=== PATIENT | male | born 1970 | race Caucasian/White ===

== ENCOUNTER 2016-05-03 09:19 | Emergency (ER) | payer OTHER ==
[~2016-05-03] VITALS: Ht 177.8 cm; Wt 74.5 kg
[~2016-05-03 09:19] MED LIST: LEVO200T6 PO; MECL1TAB42 PO; ONDA4TAB46 PO
[2016-05-03 09:21] VITALS: TEMP 36.9; Ht 177.8 cm; Wt 74.5 kg
[2016-05-03 09:38] VITALS: O2SAT 97
[2016-05-03] MEDS ORDERED: FLUO10CA48 PO (09:42)
[2016-05-03] MEDS ORDERED: RGL10 PO (09:42)
[2016-05-03] MEDS ORDERED: ATOR-22 PO (09:42)
[2016-05-03] MEDS ORDERED: MTHL (09:42)
[2016-05-03] MEDS ORDERED: OMEP10CA2 PO (09:42)
[2016-05-03] MEDS ORDERED: SODIUM CHLORIDE 0.9% 1000ML 1,000 ML IV STA (09:59)
[2016-05-03] MEDS ORDERED: hydrOXYzine HCL 25 MG TAB PO STA (09:59)
--- NOTE | 2016-05-03 10:54 | DIAGNOSTIC IMAGING REPORT ---
CT SCAN OF THE BRAIN WITHOUT IV CONTRAST CLINICAL HISTORY: Seizure. COMPARISON STUDY: CT of the brain dated 03/26/2009. TECHNIQUE: Unenhanced axial CT scan of the brain is performed from the vertex to the skull base. Automated dose control exposure was utilized. FINDINGS: Brain parenchyma: The brain parenchyma is normal in appearance. There is no hemorrhage, mass effect, or evidence of acute territorial ischemia by CT criteria. Sorenson-white matter is preserved. No extra-axial fluid collection is seen. Ventricles, sulci, cisterns: Normal in configuration. Intracranial vasculature: The visualized intracranial vasculature at the skull base is normal in appearance. Calvarium: There is no depressed calvarial fracture. Sinuses and mastoids: There is moderate mucosal thickening in the ethmoid sinuses. Mild mucosal thickening is seen in the right frontal sinus. The mastoid air cells are well pneumatized. Orbits: The bony orbits are grossly intact. IMPRESSION: No acute intracranial abnormality. Electronically signed by: Ventura Marvin M.D. 05/03/2016 10:52 AM Dictated Date/Time: 05/03/2016 10:48 AM
[2016-05-03 11:03] LABS: PARTIAL THROMBOPLASTIN RATIO 1.1; PROTHROMBIN TIME (PATIENT) 10.7 SECONDS (9.0-12.0)
--- NOTE | 2016-05-03 11:08 | DIAGNOSTIC IMAGING REPORT ---
MAXILLOFACIAL CT CT DOSE: 838.16 mGy.cm HISTORY: Seizures. TECHNIQUE: Multiaxial CT images of the maxillofacial region were performed and reformatted in the coronal plane without the use of contrast. COMPARISON: None. FINDINGS: The visualized cervical spine, skull base, pterygoid plates, lamina papyracea, orbital floors, mandible, and zygomatic arches are intact. No acute fractures. The orbits are unremarkable. Slight deformity of the nasal bones likely represent old, healed fractures. There is right nasal septal deviation. IMPRESSION: No acute fractures within the maxillofacial region. Electronically signed by: J Carlos Oconnell M.D. 05/03/2016 11:06 AM Dictated Date/Time: 05/03/2016 10:51 AM
[2016-05-03 11:10] LABS: BLOOD UREA NITROGEN 12 mg/dl (7-18); BUN/CREATININE RATIO 12.5 (10-20); CALCIUM 9.4 mg/dl (8.5-10.1); CARBON DIOXIDE 31 mmol/L (21-32); CHLORIDE 101 mmol/L (98-107); GLUCOSE 90 mg/dl (70-99); POTASSIUM 3.9 mmol/L (3.5-5.1); SODIUM 139 mmol/L (136-145)
[2016-05-03 11:15] LABS: ACETAMINOPHEN < 2 ug/ml (10-30)
[2016-05-03 11:21] LABS: ALKALINE PHOSPHATASE 99 U/L (45-117); ALT/SGPT 52 U/L (12-78); AST/SGOT 37 U/L (15-37); THYROID STIMULATING HORMONE 0.226 uIu/ml (0.300-4.500)
[2016-05-03 11:22] LABS: BASO % 0.1 %; BASO ABS # 0.01 K/uL (0-0.2); COMPLETE YES; EOS % 0.1 %; HEMATOCRIT 45.5 % (42-52); IG% 0.3 %; LYMPH % 11.2 %; LYMPH ABS # 1.05 K/uL (1.2-3.4); MEAN CELL VOLUME 83.9 fL (80-100); MEAN CORPUSCULAR HEMOGLOBIN 28.8 pg (25-34); MEAN CORPUSCULAR HGB CONC 34.3 g/dl (32-36); MEAN PLATELET VOLUME 9.6 fL (7.4-10.4); MONO % 6.1 %; NEUT % 82.2 %; PLATELET COUNT 271 K/uL (130-400); RED BLOOD COUNT 5.42 M/uL (4.7-6.1); WHITE BLOOD COUNT 9.35 K/uL (4.8-10.8)
[2016-05-03 12:55] LABS: BENZODIAZEPINE, URINE NEG (NEG); COCAINE,URINE NEG (NEG); PHENCYCLIDINE, URINE NEG (NEG)
[2016-05-03] MEDS ORDERED: HYDR50CA2 PO (13:22)
--- NOTE | 2016-05-03 16:35 | EMERGENCY ROOM VISIT NOTE ---
History Report prepared by Arcelia: Matt Middleton Under the Supervision of: Dr. Ariel Hurley M.D. First contact with patient: 09:44 Chief Complaint: SEIZURE Stated Complaint: SEIZURES Nursing Triage Summary: Pt states, "I've been on methadone maintenance for years. They started tapering me down. Out of the blue the dose isn't in me any more. I get hot flashes and pass out and woke up convulsing on the bathroom floor. They gave me a dose this morning, but it's like it's not in me. Something is taking it out of me." Pt reports feeling anxious. Pt reports multiple episodes. States, "The one I busted my face on last night was at 6pm. I've had mini ones since then." History of Present Illness The patient is a 46 year old male who presents to the Emergency Room with complaints of a resolved convulsive episode that occurred yesterday at 1730. The patient has been experiencing intermittent hot flashes for four days. Yesterday he was having a hot flash and started experiencing dizziness. He got extremely nauseous and dizzy. He lost consciousness briefly and fell hitting his face on the toilet. When he came to he states he was shaking all over for several seconds. He states he was awake while he was shaking and couldn't control himself. The patient has been on a Methadone maintenance program for several years. He has been on a blind taper for six months now. The patient usually takes one dose every morning. The patient feels like he has been withdrawing. He hasn't felt right for 4-5 days now. He had his Methadone dose increased when he saw his doctor yesterday but he still states that he does not feel like he is getting enough methadone. He feels like the methadone is leaving his body at about 5 PM daily and he developed these withdrawal symptoms. He was referred to the ED by the [facility] this morning where he was given his daily dose. Even now he states that he feels like the methadone is leaving his body. The patient has a history of panic attacks. He feels short of breath when he is panicking, and starts to feel numbness/ tingling in his fingers. The patient denies chest pain. He has had no recorded fevers. The patient does have a history of abdominal issues for which he sees his regular doctor. He believes that he has celiac disease and has been taken off gluten. Source of History: patient Onset: 1730 yesterday Position: other (global) Quality: other (syncopal episode) Timing: resolved Associated Symptoms: + SOB, + numbness (tingling to his fingers and toes), No chest pain, No fevers Note: Patient was also positive for hot flashes and dizziness. Review of Systems See HPI for pertinent positives & negatives. A total of 10 systems reviewed and were otherwise negative. Past Medical & Surgical Medical Problems: (1) Celiac disease (2) Methadone use Family History Patient reports no known family medical history. Social History Smoking Status: Current Every Day Smoker Alcohol Use: none Occupation Status: employed Current/Historical Medications Scheduled Atorvastatin (Lipitor), 20 MG PO DAILY Fluoxetine (Prozac), 10 MG PO DAILY Levothyroxine Sodium (Levothyroxine Sodium), 200 MCG PO DAILY Methadone HCl (Methadone HCl), Unknown Dose DAILY Metoclopramide HCl (Metoclopramide HCl), 10 MG PO HS Omeprazole (Prilosec), Unknown Dose PO DAILY Scheduled PRN Hydroxyzine Pamoate (Vistaril), 50 MG PO Q6H PRN for withdrawal Allergies Coded Allergies: No Known Allergies (Verified , 05/03/16) Physical Exam Vital Signs Date Time Temp Pulse Resp B/P Pulse Ox O2 Delivery O2 Flow Rate FiO2 05/03/16 14:27 73 17 133/75 96 Room Air 05/03/16 12:53 67 05/03/16 12:31 86 13 123/82 99 Room Air 05/03/16 10:24 68 20 146/83 98 Room Air 05/03/16 09:38 82 20 144/95 97 Room Air 05/03/16 09:38 97 Room Air 05/03/16 09:34 96 05/03/16 09:21 36.9 105 22 196/110 94 Room Air Physical Exam Constitutional: Vital signs reviewed. Eyes: Pupils are equal round reactive to light. Conjunctiva are noninjected. ENT: Pharynx is clear without erythema or exudate. Mucous membranes are moist. Abrasion and tenderness to the left mid face. No tongue lacerations. Neck supple without meningeal signs. No midline tenderness to the cervical spine. Respiratory: Clear to auscultation bilaterally. Breath sounds are equal bilaterally. Cardiovascular: Regular rate and rhythm. No rubs or gallops. GI: Soft, nondistended and nontender. Bowel sounds are present. Musculoskeletal: No peripheral edema. No lower extremity tenderness. Integumentary: No cyanosis. Neurologic: The patient is awake and alert. Cranial nerves II-XII are intact. Motor is 5 out of 5 all extremities. Sensation is intact to light touch all extremities. Normal speech. No pronator drift. No dysdiadochokinesis. No limb ataxia. Psychiatric: Very anxious. Medical Decision & Procedures ER Provider Diagnostic Interpretation: CT results as stated below per my review and radiologist interpretation. MAXILLOFACIAL CT CT DOSE: 838.16 mGy.cm HISTORY: Seizures. TECHNIQUE: Multiaxial CT images of the maxillofacial region were performed and reformatted in the coronal plane without the use of contrast. COMPARISON: None. FINDINGS: The visualized cervical spine, skull base, pterygoid plates, lamina papyracea, orbital floors, mandible, and zygomatic arches are intact. No acute fractures. The orbits are unremarkable. Slight deformity of the nasal bones likely represent old, healed fractures. There is right nasal septal deviation. IMPRESSION: No acute fractures within the maxillofacial region. Electronically signed by: J Carlos Oconnell M.D. 05/03/2016 11:06 AM Dictated Date/Time: 05/03/2016 10:[address] SCAN OF THE BRAIN WITHOUT IV CONTRAST CLINICAL HISTORY: Seizure. COMPARISON STUDY: CT of the brain dated 03/26/2009. TECHNIQUE: Unenhanced axial CT scan of the brain is performed from the vertex to the skull base. Automated dose control exposure was utilized. FINDINGS: Brain parenchyma: The brain parenchyma is normal in appearance. There is no hemorrhage, mass effect, or evidence of acute territorial ischemia by CT criteria. Sorenson-white matter is preserved. No extra-axial fluid collection is seen. Ventricles, sulci, cisterns: Normal in configuration. Intracranial vasculature: The visualized intracranial vasculature at the skull base is normal in appearance. Calvarium: There is no depressed calvarial fracture. Sinuses and mastoids: There is moderate mucosal thickening in the ethmoid sinuses. Mild mucosal thickening is seen in the right frontal sinus. The mastoid air cells are well pneumatized. Orbits: The bony orbits are grossly intact. IMPRESSION: No acute intracranial abnormality. Electronically signed by: Ventura Marvin M.D. 05/03/2016 10:52 AM Dictated Date/Time: 05/03/2016 10:48 AM Laboratory Results 05/03/16 10:20 Red Blood Count 5.42, Mean Corpuscular Volume 83.9, Mean Corpuscular Hemoglobin 28.8, Mean Corpuscular Hemoglobin Concent 34.3, Mean Platelet Volume 9.6, Neutrophils (%) (Auto) 82.2, Lymphocytes (%) (Auto) 11.2, Monocytes (%) (Auto) 6.1, Eosinophils (%) (Auto) 0.1, Basophils (%) (Auto) 0.1, Neutrophils # (Auto) 7.68, Lymphocytes # (Auto) 1.05, Monocytes # (Auto) 0.57, Eosinophils # (Auto) 0.01, Basophils # (Auto) 0.01 05/03/16 10:20 Test 05/03/16 10:20 05/03/16 11:40 White Blood Count 9.35 K/uL (4.8-10.8) Red Blood Count 5.42 M/uL (4.7-6.1) Hemoglobin 15.6 g/dL (14.0-18.0) Hematocrit 45.5 % (42-52) Mean Corpuscular Volume 83.9 fL (80-100) Mean Corpuscular Hemoglobin 28.8 pg (25-34) Mean Corpuscular Hemoglobin Concent 34.3 g/dl (32-36) Platelet Count 271 K/uL (130-400) Mean Platelet Volume 9.6 fL (7.4-10.4) Neutrophils (%) (Auto) 82.2 % Lymphocytes (%) (Auto) 11.2 % Monocytes (%) (Auto) 6.1 % Eosinophils (%) (Auto) 0.1 % Basophils (%) (Auto) 0.1 % Neutrophils # (Auto) 7.68 K/uL (1.4-6.5) Lymphocytes # (Auto) 1.05 K/uL (1.2-3.4) Monocytes # (Auto) 0.57 K/uL (0.11-0.59) Eosinophils # (Auto) 0.01 K/uL (0-0.5) Basophils # (Auto) 0.01 K/uL (0-0.2) RDW Standard Deviation 45.8 fL (36.4-46.3) RDW Coefficient of Variation 14.9 % (11.5-14.5) Immature Granulocyte % (Auto) 0.3 % Immature Granulocyte # (Auto) 0.03 K/uL (0.00-0.02) Prothrombin Time 10.7 SECONDS (9.0-12.0) Prothromb Time International Ratio 1.0 (0.9-1.1) Activated Partial Thromboplast Time 27.5 SECONDS (21.0-31.0) Partial Thromboplastin Ratio 1.1 Anion Gap 7.0 mmol/L (3-11) Est Creatinine Clear Calc Drug Dose 95.3 ml/min Estimated GFR () 104.1 Estimated GFR (Non- 89.9 BUN/Creatinine Ratio 12.5 (10-20) Calcium Level 9.4 mg/dl (8.5-10.1) Total Bilirubin 0.4 mg/dl (0.2-1) Direct Bilirubin 0.1 mg/dl (0-0.2) Aspartate Amino Transf (AST/SGOT) 37 U/L (15-37) Alanine Aminotransferase (ALT/SGPT) 52 U/L (12-78) Alkaline Phosphatase 99 U/L (45-117) Troponin I < 0.015 ng/ml (0-0.045) Total Protein 8.9 gm/dl (6.4-8.2) Albumin 4.9 gm/dl (3.4-5.0) Thyroid Stimulating Hormone (TSH) 0.226 uIu/ml (0.300-4.500) Free Thyroxine 1.86 ng/dl (0.80-1.60) Salicylates Level 4.5 mg/dl (2.8-20) Acetaminophen Level < 2 ug/ml (10-30) Ethyl Alcohol mg/dL < 3.0 mg/dl (0-3) Urine Opiates Screen NEG (NEG) Urine Methadone, Qualitative POS (NEG) Urine Barbiturates NEG (NEG) Urine Phencyclidine (PCP) Level NEG (NEG) Ur Amphetamine/Methamphetamine NEG (NEG) MDMA (Ecstasy) Screen NEG (NEG) Urine Benzodiazepines Screen NEG (NEG) Urine Cocaine Metabolite NEG (NEG) Urine Marijuana (THC) POS (NEG) Laboratory results as reviewed by me. Medications Administered Medications (Trade) Dose Ordered Sig/Mario Alberto Route Start Time Stop Time Status Last Admin Dose Admin Sodium Chloride (Nss 1000ml) 1,000 ml @ 999 mls/hr Q1H1M STAT IV 05/03/16 09:59 05/03/16 10:59 DC 05/03/16 10:23 999 MLS/HR Hydroxyzine HCl (Vistaril Tab) 50 mg NOW STAT PO 05/03/16 09:59 05/03/16 10:03 DC 05/03/16 10:22 50 MG ECG Indication: syncope Rate (beats per minute): 71 Rhythm: normal sinus Findings: no acute ischemic change, no ectopy ED Course 0946: The patient was evaluated in room B11b. A complete history and physical exam was performed. 0959: Vistaril 50 mg PO, NSS 1000 ml @ 999 mls/hr. 1106: Went to check on the patient. He is on the phone with a nurse at the methadone clinic talking about his withdrawal symptoms. He is not feeling bad right now but is concerned about later in the day. 1140: The patient requested to speak with a case technician about inpatient rehab for his methadone withdrawal. 1230: Talked with the patient. He is feeling better and much less anxious now that he received Vistaril. I discussed his thyroid test with him. He will follow up with his PCP. The patient is still waiting to speak with case management. 1558: The case technician will continue trying to get the patient into rehab. He can be discharged at this time. 1600: He was discharged home. Medical Decision This is a 46-year-old male who presents with dizziness and a syncopal episode. Differential diagnosis includes vasovagal syncope, opiate withdrawal, anxiety, panic attack, metabolic derangement. I did perform a limited focused review of portions of the patient's old chart on the electronic medical record. The patient has had no recent pertinent visits to this hospital. I did evaluate the patient as noted above. The patient has been having withdrawal symptoms for the past 4-5 days. He has been on methadone and they have been doing a blind taper of his dosing. He states that he feels like the methadone leaves his body by around 5 PM and he develops withdrawal symptoms because of this. Last night he had a syncopal episode after feeling extremely nauseous and dizzy. His symptoms sound like he had a vasovagal syncopal episodes due to withdrawal symptoms. He describes shaking but stated it was only very brief and while he was awake. This seems unlikely to have been a seizure. He has no reported history of seizure in the past. He is also extremely anxious. IV access was established. The patient was placed on a continuous inspector canvas products. I did treat him with Vistaril 50 mg orally. He was also given a liter of normal saline IV. I did order and personally review the patient's 12-lead EKG as described above. I did order and review the patient's blood work as noted in the electronic medical record. His TSH is slightly low and his T3 is slightly high. I did order a CT of the head and facial bones. I did review the images myself as well as the radiology report as described above. There is no evidence of intracranial hemorrhage or facial fracture. I did reassess the patient. He is much less anxious at this time. He states he feels better because of the Vistaril. I did discuss his test results with him and recommended he follow closely with his doctor regarding his hyperthyroidism. He requested to talk to someone about entering inpatient rehabilitation. I did have the entire health gig tender evaluate him and make recommendations. I did reassess him again and he continues to feel well at this time although is anxious about how he will feel later tonight. Although his syncope appears to have been vasovagal, the patient was advised to avoid any activity that may put himself or others at risk should he have another syncopal episode until cleared by his physician. He was given a prescription for Vistaril and discharged in good condition. Impression Primary Impression: Syncope Additional Impressions: Contusion of face Opiate withdrawal Hyperthyroidism Anxiety Scribe Attestation The scribe's documentation has been prepared under my direct and personally reviewed by me in its entirety. I confirm that the note above accurately reflects all work, treatment, procedures, and medical decision making performed by me. Departure Information Dispostion Home / Self-Care Prescriptions Hydroxyzine Pamoate (VISTARIL) 50 Mg Cap 50 MG PO Q6H Y for withdrawal, #14 CAP PRN ITCH Prov: Ariel Hurley M.D. 05/03/16 Referrals Sumeet Cornell PA-C (PCP) Forms HOME CARE DOCUMENTATION FORM, IMPORTANT VISIT INFORMATION Patient Instructions A Signature Page, ED Withdrawal Narcotic, My [facility], Syncope Additional Instructions You have been examined and treated today on an emergency basis only. This is not a substitute for, or an effort to provide, complete comprehensive medical care. It is impossible to recognize and treat all injuries or illnesses in a single emergency department visit. It is therefore important that you follow up closely with your physician. Call as soon as possible for an appointment. Return for worsening symptoms or if you develop fever, vomiting, chest pain or any other concerning symptoms. Do not engage in any activity that may put yourself or others at risk should you pass out again. This includes, but is not limited to, driving, taking a bath, climbing heights, swimming or operating heavy machinery. Problem Qualifiers Primary Impression: Syncope Syncope type: unspecified Qualified Codes: R55 - Syncope and collapse Additional Impressions: Contusion of face Encounter type: initial encounter Qualified Codes: S00.83XA - Contusion of other part of head, initial encounter
[2016-05-03 16:38] VITALS: BP 143/89; PULSE 79; O2SAT 98
[2016-05-05 13:12] LABS: METHADONE METABOLITE >40000 NG/ML (CUTOFF=100); METHADONE VERIFIC 8540 NG/ML (CUTOFF=100)
[2016-12-02] MEDS ORDERED: AZEL0.15 NAE (09:51)
[2016-12-02] MEDS ORDERED: LEVO150T PO (09:51)
[2016-12-02] MEDS ORDERED: PANT40TA PO (09:51)
[2016-12-02] MEDS ORDERED: HYDR10SY2 PO (09:51)
[2016-12-02] MEDS ORDERED: RANI1TAB75 PO (09:51)
[2016-12-02] MEDS ORDERED: ONDA8TAB6 PO (09:51)
[2016-12-02] MEDS ORDERED: FLUO20CA20 PO (09:51)
== END 2016-05-03 16:40 | disposition home or self-care (01) ==
LOC: C.EDB 09:21
DX: R55 Syncope and collapse (principal); S00.83XA Contusion of other part of head, initial encounter; W19.XXXA Unspecified fall, initial encounter; F11.23 Opioid dependence with withdrawal; E05.90 Thyrotoxicosis, unspecified without thyrotoxic crisis or storm; F41.9 Anxiety disorder, unspecified; K90.0 Celiac disease; F17.200 Nicotine dependence, unspecified, uncomplicated; Z79.899 Other long term (current) drug therapy

== ENCOUNTER → 2016-12-09 | Day surgery (SDC) | payer OTHER ==
[2016-12-02 09:53] VITALS: BMI 26.0
[~2016-12-09] VITALS: Ht 177.8 cm; Wt 81.8 kg
[~2016-12-09] MED LIST changes: +ATOR-22 PO; +AZEL0.15 NAE; +BENZOCAIN/TETRACA/BUTAM SPRAY 200 APPLN/20 GM SPRY ONE; +FLUO20CA20 PO; +HYDR10SY2 PO; +LEVO150T PO; -LEVO200T6 PO; +LIDOCAINE HCL 2% 2 ML VIAL (20MG/ML) ONE; -MECL1TAB42 PO; +MIDAZOLAM HCL 1 MG/ML 2ML VIAL ONE; +MTHL; -ONDA4TAB46 PO; +ONDA8TAB6 PO; +PANT40TA PO; +PROPOFOL IV EMULSION 10 MG/ML 20 ML VIAL IV ONE; +RANI1TAB75 PO; +SODIUM CHLORIDE 0.9% 500ML 500 ML IV ONE
[2016-12-09 09:29] VITALS: Ht 177.8 cm; Wt 81.8 kg
[2016-12-09 09:47] LABS: HEMATOCRIT 41.2 % (42-52); MEAN CELL VOLUME 84.9 fL (80-100); MEAN CORPUSCULAR HEMOGLOBIN 27.4 pg (25-34); MEAN CORPUSCULAR HGB CONC 32.3 g/dl (32-36); MEAN PLATELET VOLUME 9.3 fL (7.4-10.4); PLATELET COUNT 252 K/uL (130-400); RED BLOOD COUNT 4.85 M/uL (4.7-6.1); WHITE BLOOD COUNT 6.98 K/uL (4.8-10.8)
[2016-12-09 10:15] LABS: BUN/CREATININE RATIO 13.2 (10-20); CALCIUM 8.5 mg/dl (8.5-10.1); CREATININE 0.91 mg/dl (0.60-1.40); POTASSIUM 4.1 mmol/L (3.5-5.1)
[2016-12-09 10:23] LABS: THYROID STIMULATING HORMONE 1.92 uIu/ml (0.300-4.500)
[2016-12-09 10:26] LABS: T3 TOTAL 0.92 ng/ml (0.60-1.81); THYROXINE (T4) 10.4 mcg/dl (4.5-10.9)
--- NOTE | 2016-12-09 10:27 | Endo History and Physical ---
History & Physical Date of Service: Dec 09, 2016. Chief Complaint: ABDOMINAL PAIN GERD NAUSEA VOMITING Referring Physician: LYN SETHI History of Present Illness 46 yo CM who presents for EGD secondary to abdominal pain, GERD, nausea and vomiting. 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) Hx Alcohol Use: No Allergies Coded Allergies: No Known Allergies (Verified , 12/09/16) Current Medications Reported Home Medications Medications Dose Route/Sig Max Daily Dose Days Date Category Dose Instructions Zofran (Ondansetron HCl) 8 Mg Tab 8 Mg PO Q6-8H PRN 12/02/16 Reported Hydroxyzine Hcl 10 Mg/5 Ml Syp 10 Ml PO BID 12/02/16 Reported Astepro (Azelastine Hcl) 0.15 % Spr 2 Ider SAIDA DAILY 12/02/16 Reported Ranitidine 75 (Ranitidine HCl) 75 Mg Tab 1 Tab PO BID 12/02/16 Reported Protonix (Pantoprazole Sodium) 40 Mg Tab 40 Mg PO QAM 12/02/16 Reported Fluoxetine (Fluoxetine Hcl (Pmdd)) 20 Mg Cap 1 Cap PO AFTERNOON 12/02/16 Reported Synthroid (Levothyroxine Sodium) 150 Mcg Tab 150 Mcg PO QAM 12/02/16 Reported Lipitor (Atorvastatin Calcium) 20 Mg Tab 20 Mg PO AFTERNOON 05/03/16 Reported Methadone HCl 1 Mg/1 Ml Soln Unknown Dose DAILY 05/03/16 Reported "BLIND TAPER" Vital Signs Weight (Kilograms): 81.82 Height (Feet): 5 Height (Inches): 10 Date Time Temp Pulse Resp B/P (MAP) Pulse Ox O2 Delivery O2 Flow Rate FiO2 12/09/16 09:39 37.1 58 20 116/70 (85) 97 Room Air Physical Exam General Appearance: WD/WN, no apparent distress Respiratory/Chest: Auscultation: breath sounds normal Cardiovascular: Heart Auscultation: RRR Abdomen: Bowel Sounds: normal Inspection & Palpation: soft, non-distended, no tenderness, guarding & rebound Assessment and Plan Assessment: 46 yo CM who presents for EGD secondary to abdominal pain, GERD, nausea and vomiting. Plan: Proceed with EGD
--- NOTE | 2016-12-09 11:42 | GI REPORT ---
Procedure Date: 12/09/2016 11:07 AM Procedure: Upper GI endoscopy Indications: Epigastric abdominal pain, Suspected gastro-esophageal reflux disease, Nausea with vomiting Medicines: Monitored Anesthesia Care Complications: No immediate complications. Estimated Blood Loss: Estimated blood loss: none. Procedure: Pre-Anesthesia Assessment: - Prior to the procedure, a History and Physical was performed, and patient medications and allergies were reviewed. The patient's tolerance of previous anesthesia was also reviewed. The risks and benefits of the procedure and the sedation options and risks were discussed with the patient. All questions were answered, and informed consent was obtained. Prior Anticoagulants: The patient has taken no previous anticoagulant or antiplatelet agents. ASA Grade Assessment: II - A patient with mild systemic disease. After reviewing the risks and benefits, the patient was deemed in satisfactory condition to undergo the procedure. After obtaining informed consent, the endoscope was passed under direct vision. Throughout the procedure, the patient's blood pressure, pulse, and oxygen saturations were monitored continuously. The scope was introduced through the mouth, and advanced to the second part of duodenum. The upper GI endoscopy was accomplished without difficulty. The patient tolerated the procedure well. Findings: The esophagus was normal. A medium amount of food (residue) was found in the entire examined stomach. Localized mild inflammation characterized by erythema was found in the gastric antrum. Biopsies were taken with a cold forceps for histology. The examined duodenum was normal. Impression: - Normal esophagus. - A medium amount of food (residue) in the stomach. - Gastritis. Biopsied. - Normal examined duodenum. Recommendation: - Resume previous diet. - Continue present medications. - Return to primary care physician as previously scheduled. - Do a gastric emptying study at appointment to be scheduled. - Await pathology results. Dustin Orr DO 12/09/2016 11:42:27 AM This report has been signed electronically. Note Initiated On: 12/09/2016 11:07 AM I attest to the content of the Intraoperative Record and orders documented therein, exceptions below
--- NOTE | 2016-12-09 12:02 | Anesthesiology Progress Note ---
Anesthesia Post Op Note Date & Time Dec 09, 2016 at 12:01 Vital Signs Pain Intensity: 0 Vital Signs Past 12 Hours Date Time Temp Pulse Resp B/P (MAP) Pulse Ox O2 Delivery O2 Flow Rate FiO2 12/09/16 11:50 53 16 104/65 (78) 97 Room Air 12/09/16 11:35 57 16 109/68 (82) 97 Room Air 12/09/16 09:39 37.1 58 20 116/70 (85) 97 Room Air Notes Mental Status: alert / awake / arousable, participated in evaluation Pt Amnestic to Procedure: Yes Nausea / Vomiting: adequately controlled Pain: adequately controlled Airway Patency, RR, SpO2: stable & adequate BP & HR: stable & adequate Hydration State: stable & adequate Anesthetic Complications: no major complications apparent
[2016-12-09 12:06] VITALS: BP 125/81; PULSE 51; O2SAT 97
[2016-12-09 12:25] LABS: ESTIMATED AVERAGE GLUCOSE 117 mg/dl; HA1C FLAG Normal (Normal)
--- NOTE | 2016-12-09 12:27 | Discharge Instructions ---
Endoscopy Patient Instructions Date / Procedure(s) Performed Dec 09, 2016. EGD Allergy Information Coded Allergies: No Known Allergies (Verified , 12/09/16) Discharge Date / Findings Dec 09, 2016. Gastritis s/p biopsies Retained gastric contents Medication Instructions OK to resume all medications today as prescribed Reported Home Medications Medications Dose Route/Sig Max Daily Dose Days Date Category Dose Instructions Zofran (Ondansetron HCl) 8 Mg Tab 8 Mg PO Q6-8H PRN 12/02/16 Reported Hydroxyzine Hcl 10 Mg/5 Ml Syp 10 Ml PO BID 12/02/16 Reported Astepro (Azelastine Hcl) 0.15 % Spr 2 [place] SAIDA DAILY 12/02/16 Reported Ranitidine 75 (Ranitidine HCl) 75 Mg Tab 1 Tab PO BID 12/02/16 Reported Protonix (Pantoprazole Sodium) 40 Mg Tab 40 Mg PO QAM 12/02/16 Reported Fluoxetine (Fluoxetine Hcl (Pmdd)) 20 Mg Cap 1 Cap PO AFTERNOON 12/02/16 Reported Synthroid (Levothyroxine Sodium) 150 Mcg Tab 150 Mcg PO QAM 12/02/16 Reported Lipitor (Atorvastatin Calcium) 20 Mg Tab 20 Mg PO AFTERNOON 05/03/16 Reported Methadone HCl 1 Mg/1 Ml Soln Unknown Dose DAILY 05/03/16 Reported "BLIND TAPER" Provider Instructions Activity Restrictions - No exercising or heavy lifting for 24 hours. - Do not drink alcohol the day of the procedure. - Do not drive a car or operate machinery until the day after the procedure. - Do not make any important decisions or sign important papers in 24 hours after the procedure. Following Day: - Return to full activity which may include returning to work/school. Diet Start your diet with liquids and light foods (jello, soup, juice, toast). Then eat your usual diet if not nauseated. Treatment For Common After Affects For mild abdominal pain, bloating, or excessive gas: - Rest - Eat lightly - Lie on right side Follow-Up Information Follow-up with LYN SETHI as scheduled Anesthesia Information What You Should Know You have had a procedure that required some medicine to reduce anxiety and discomfort. This treatment is called moderate sedation. After receiving the treatment, you may be sleepy, but you will be able to breathe on your own. The effects of the treatment may last for several hours. Follow these instructions along with Activity/Diet recommendations noted above: * Do NOT do anything where dizziness or clumsiness would be dangerous. * Rest quietly at home today, then you can be up and about tomorrow. * Have a responsible person stay with you the rest of today. * You may have had an I.V. today. If so, you may take the dressing off later today. Recommendations Call your doctor if: * Trouble breathing * Continuous vomiting for more than 24 hours * Temperature above 101 degrees * Severe abdominal pain or bloating * Pain not relieved by pain medicine ordered * There is increased drainage or redness from any incision * A large amount of rectal bleeding greater than 2-3 tablespoons. (If you had a polyp/s removed or have hemorrhoids, a small amount of blood - from the rectum is to be expected.) * You have any unanswered questions or concerns. IN THE EVENT OF A SERIOUS EMERGENCY, GO TO THE NEAREST EMERGENCY ROOM Your discharge instructions were prepared by provider Dustin Orr. Patient Instructions Signature Page Robby Blandon Patient (or Guardian) Signature/Date: I have read and understand the instructions given to me by my caregivers. Caregiver/RN/Doctor Signature/Date: The above-named patient and/or guardian has received patient instructions on this date. + Original Patient Signature Page (only) stays with chart. Please make copy for patient.
[2016-12-12 05:31] LABS: IGA SERUM 208 mg/dL (81-463); TIS TRANS IGA 1 U/mL (<4)
== END | disposition home or self-care (01) ==
LOC: C.GI 08:50
PROVIDERS: ATTEND Internal Medicine
DX: R10.13 Epigastric pain (principal); K31.84 Gastroparesis; K29.50 Unspecified chronic gastritis without bleeding; R11.2 Nausea with vomiting, unspecified; K21.9 Gastro-esophageal reflux disease without esophagitis; F17.200 Nicotine dependence, unspecified, uncomplicated; R14.0 Abdominal distension (gaseous); E03.8 Other specified hypothyroidism; E78.5 Hyperlipidemia, unspecified

== ENCOUNTER → 2016-12-21 | Outpatient (CLI) | payer OTHER ==
[~2016-12-21] MED LIST changes: -BENZOCAIN/TETRACA/BUTAM SPRAY 200 APPLN/20 GM SPRY ONE; -LIDOCAINE HCL 2% 2 ML VIAL (20MG/ML) ONE; -MIDAZOLAM HCL 1 MG/ML 2ML VIAL ONE; -PROPOFOL IV EMULSION 10 MG/ML 20 ML VIAL IV ONE; -SODIUM CHLORIDE 0.9% 500ML 500 ML IV ONE
--- NOTE | 2016-12-21 07:54 | DIAGNOSTIC IMAGING REPORT ---
BILIARY ABDOMEN LIMITED HISTORY: 46 years-old Male R11.2 Nausea and vomiting in [id number] Abdominal [id number] COMPARISON: None available TECHNIQUE: Multiple real-time sonographic images of the abdominal right upper quadrant were obtained assessing grayscale appearance and color flow FINDINGS: The liver is mildly echogenic and heterogeneous. Pancreas is obscured by bowel gas. Gallbladder demonstrates no wall thickening, shadowing cholelithiasis or pericholecystic fluid collections. A positive sonographic Soto's sign was not reported. Common bile duct measures 0.6 cm. Imaged right kidney is unremarkable. IMPRESSION: 1. No evidence of cholelithiasis, sonographic evidence of acute cholecystitis or biliary ductal dilation. 2. Mildly echogenic heterogeneous appearance of the liver may reflect mild fatty infiltration. The above report was generated using voice recognition software. It may contain grammatical, syntax or spelling errors. Electronically signed by: Leonardo Umana M.D. 12/21/2016 7:53 AM Dictated Date/Time: 12/21/2016 7:51 AM
--- NOTE | 2016-12-21 13:27 | DIAGNOSTIC IMAGING REPORT ---
NUCLEAR GASTRIC EMPTYING STUDY HISTORY: Gastroparesis. Generalized abdominal pain. Reflux disease. COMPARISON: Abdominal ultrasound 12/21/2016. TECHNIQUE: Following the oral administration of 1.1 mCi of technetium 99m sulfur colloid in egg sandwich and 8 ounces of water, static abdominal images are obtained anteriorly and posteriorly at 0 minutes, 1 hour, 2 hour, and 4 hour time intervals. Gastric emptying was calculated utilizing the geometric mean method. FINDINGS: There is approximately 68% activity remaining at the 1 hour time interval (normal is less than 90%), 49% remaining at the 2 hour time interval (normal is less than 60%), and 4% activity remaining at the 4 hour time interval (normal is less than 10%). IMPRESSION: No evidence for delayed gastric emptying. Electronically signed by: J Carlos Oconnell M.D. 12/21/2016 1:25 PM Dictated Date/Time: 12/21/2016 1:25 PM
== END | disposition home or self-care (01) ==
LOC: C.ULTR 07:20
PROVIDERS: ATTEND Registered Nurse
DX: R11.2 Nausea with vomiting, unspecified (principal); R14.0 Abdominal distension (gaseous); K21.9 Gastro-esophageal reflux disease without esophagitis; K31.84 Gastroparesis

== ENCOUNTER → 2017-02-09 | Day surgery (SDC) | payer OTHER ==
[2017-02-06 11:04] VITALS: Ht 176.5 cm; Wt 81.8 kg
[~2017-02-09] VITALS: Ht 176.5 cm; Wt 81.8 kg
[~2017-02-09] MED LIST changes: +LIDOCAINE HCL 2% 2 ML VIAL (20MG/ML) ONE; +MIDAZOLAM HCL 1 MG/ML 2ML VIAL ONE; +ONDANSETRON INJ 2 MG/ML 2 ML VIAL ONE; +PROPOFOL IV EMULSION 10 MG/ML 20 ML VIAL IV ONE; +SODIUM CHLORIDE 0.9% 500ML 500 ML IV ONE; +SUCR1TAB29 PO
--- NOTE | 2017-02-09 15:32 | Endo History and Physical ---
History & Physical Date of Service: Feb 09, 2017. Chief Complaint: change in bowel habits Referring Physician: Sumeet Cornell PAC History of Present Illness 46 yo CM who presents for colonoscopy secondary to change in bowel habits. 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) Hx Alcohol Use: No Allergies Coded Allergies: No Known Allergies (Verified , 02/06/17) Current Medications Reported Home Medications Medications Dose Route/Sig Max Daily Dose Days Date Category Dose Instructions Carafate (Sucralfate) 1 Gm Tab 1 Gm PO QID 02/06/17 Reported Zofran (Ondansetron HCl) 8 Mg Tab 8 Mg PO Q6-8H PRN 12/02/16 Reported Hydroxyzine Hcl 10 Mg/5 Ml Syp 10 Ml PO BID 12/02/16 Reported Astepro (Azelastine Hcl) 0.15 % Spr 2 [place] SAIDA DAILY 12/02/16 Reported Fluoxetine (Fluoxetine Hcl (Pmdd)) 20 Mg Cap 1 Cap PO AFTERNOON 12/02/16 Reported Synthroid (Levothyroxine Sodium) 150 Mcg Tab 150 Mcg PO QAM 12/02/16 Reported Lipitor (Atorvastatin Calcium) 20 Mg Tab 20 Mg PO AFTERNOON 05/03/16 Reported Methadone HCl 1 Mg/1 Ml Soln Unknown Dose DAILY 05/03/16 Reported "BLIND TAPER" Vital Signs Weight (Kilograms): 81.82 Height (Feet): 5 Height (Inches): 9.5 Date Time Temp Pulse Resp B/P (MAP) Pulse Ox O2 Delivery O2 Flow Rate FiO2 02/09/17 15:27 36.9 75 12 149/86 (107) 98 Room Air Physical Exam General Appearance: WD/WN, no apparent distress Respiratory/Chest: Auscultation: breath sounds normal Cardiovascular: Heart Auscultation: RRR Abdomen: Bowel Sounds: normal Inspection & Palpation: soft, non-distended, no tenderness, guarding & rebound Assessment and Plan Assessment: 46 yo CM who presents for colonoscopy secondary to change in bowel habits. Plan: Proceed with Colonoscopy.
[2017-02-09 15:40] LABS: HEMATOCRIT 40.4 % (42-52); MEAN CELL VOLUME 83.1 fL (80-100); MEAN CORPUSCULAR HEMOGLOBIN 28.4 pg (25-34); MEAN CORPUSCULAR HGB CONC 34.2 g/dl (32-36); PLATELET COUNT 248 K/uL (130-400); RED BLOOD COUNT 4.86 M/uL (4.7-6.1); WHITE BLOOD COUNT 5.83 K/uL (4.8-10.8)
[2017-02-09 15:53] LABS: URINE BILIRUBIN NEG (NEG); URINE COLOR DK YELLOW; URINE NITRITE NEG (NEG); URINE PH 5.5 (4.5-7.5); URINE SPECIFIC GRAVITY 1.025 (1.000-1.030); UROBILINOGEN NEG (NEG)
[2017-02-09 15:54] LABS: MANUAL MICROSCOPIC REQUIRED? NO; REVIEW REQ? NO
--- NOTE | 2017-02-09 16:01 | Discharge Instructions ---
Endoscopy Patient Instructions Date / Procedure(s) Performed Feb 09, 2017. Colonoscopy Allergy Information Coded Allergies: No Known Allergies (Verified , 02/06/17) Discharge Date / Findings Feb 09, 2017. Random colon biopsies Medication Instructions OK to resume all medications today as prescribed Reported Home Medications Medications Dose Route/Sig Max Daily Dose Days Date Category Dose Instructions Carafate (Sucralfate) 1 Gm Tab 1 Gm PO QID 02/06/17 Reported Zofran (Ondansetron HCl) 8 Mg Tab 8 Mg PO Q6-8H PRN 12/02/16 Reported Hydroxyzine Hcl 10 Mg/5 Ml Syp 10 Ml PO BID 12/02/16 Reported Astepro (Azelastine Hcl) 0.15 % Spr 2 [place] SAIDA DAILY 12/02/16 Reported Fluoxetine (Fluoxetine Hcl (Pmdd)) 20 Mg Cap 1 Cap PO AFTERNOON 12/02/16 Reported Synthroid (Levothyroxine Sodium) 150 Mcg Tab 150 Mcg PO QAM 12/02/16 Reported Lipitor (Atorvastatin Calcium) 20 Mg Tab 20 Mg PO AFTERNOON 05/03/16 Reported Methadone HCl 1 Mg/1 Ml Soln Unknown Dose DAILY 05/03/16 Reported "BLIND TAPER" Provider Instructions Activity Restrictions - No exercising or heavy lifting for 24 hours. - Do not drink alcohol the day of the procedure. - Do not drive a car or operate machinery until the day after the procedure. - Do not make any important decisions or sign important papers in 24 hours after the procedure. Following Day: - Return to full activity which may include returning to work/school. Diet Start your diet with liquids and light foods (jello, soup, juice, toast). Then eat your usual diet if not nauseated. Treatment For Common After Affects For mild abdominal pain, bloating, or excessive gas: - Rest - Eat lightly - Lie on right side Follow-Up Information Follow-up with Sumeet BALDWIN as scheduled Anesthesia Information What You Should Know You have had a procedure that required some medicine to reduce anxiety and discomfort. This treatment is called moderate sedation. After receiving the treatment, you may be sleepy, but you will be able to breathe on your own. The effects of the treatment may last for several hours. Follow these instructions along with Activity/Diet recommendations noted above: * Do NOT do anything where dizziness or clumsiness would be dangerous. * Rest quietly at home today, then you can be up and about tomorrow. * Have a responsible person stay with you the rest of today. * You may have had an I.V. today. If so, you may take the dressing off later today. Recommendations Call your doctor if: * Trouble breathing * Continuous vomiting for more than 24 hours * Temperature above 101 degrees * Severe abdominal pain or bloating * Pain not relieved by pain medicine ordered * There is increased drainage or redness from any incision * A large amount of rectal bleeding greater than 2-3 tablespoons. (If you had a polyp/s removed or have hemorrhoids, a small amount of blood - from the rectum is to be expected.) * You have any unanswered questions or concerns. IN THE EVENT OF A SERIOUS EMERGENCY, GO TO THE NEAREST EMERGENCY ROOM Your discharge instructions were prepared by provider Dustin Orr. Patient Instructions Signature Page Robby Blandon Patient (or Guardian) Signature/Date: I have read and understand the instructions given to me by my caregivers. Caregiver/RN/Doctor Signature/Date: The above-named patient and/or guardian has received patient instructions on this date. + Original Patient Signature Page (only) stays with chart. Please make copy for patient.
--- NOTE | 2017-02-09 16:06 | GI REPORT ---
Procedure Date: 02/09/2017 3:38 PM Procedure: Colonoscopy Indications: Change in bowel habits Medicines: Monitored Anesthesia Care Complications: No immediate complications. Estimated Blood Loss: Estimated blood loss: none. Procedure: Pre-Anesthesia Assessment: - Prior to the procedure, a History and Physical was performed, and patient medications and allergies were reviewed. The patient's tolerance of previous anesthesia was also reviewed. The risks and benefits of the procedure and the sedation options and risks were discussed with the patient. All questions were answered, and informed consent was obtained. Prior Anticoagulants: The patient has taken no previous anticoagulant or antiplatelet agents. ASA Grade Assessment: II - A patient with mild systemic disease. After reviewing the risks and benefits, the patient was deemed in satisfactory condition to undergo the procedure. After I obtained informed consent, the scope was passed under direct vision. Throughout the procedure, the patient's blood pressure, pulse, and oxygen saturations were monitored continuously. The scope was introduced through the anus and advanced to the terminal ileum. The colonoscopy was performed without difficulty. The patient tolerated the procedure well. The quality of the bowel preparation was good. The terminal ileum, ileocecal valve, appendiceal orifice, and rectum were photographed. Findings: The colon (entire examined portion) appeared normal. Several random biopsies were obtained with cold forceps for histology in the entire colon. The perianal and digital rectal examinations were normal. Impression: - The entire examined colon is normal. - Several random biopsies were obtained in the entire colon. Recommendation: - Resume previous diet. - Continue present medications. - Repeat colonoscopy for surveillance based on pathology results. - Return to primary care physician as previously scheduled. Dustin Orr, 02/09/2017 4:06:18 PM This report has been signed electronically. Note Initiated On: 02/09/2017 3:38 PM I attest to the content of the Intraoperative Record and orders documented therein, exceptions below
--- NOTE | 2017-02-09 16:10 | Anesthesiology Progress Note ---
Anesthesia Post Op Note Date & Time Feb 09, 2017 at 16:09 Vital Signs Pain Intensity: 0 Vital Signs Past 12 Hours Date Time Temp Pulse Resp B/P (MAP) Pulse Ox O2 Delivery O2 Flow Rate FiO2 02/09/17 15:27 36.9 75 12 149/86 (107) 98 Room Air Notes Mental Status: alert / awake / arousable, participated in evaluation Pt Amnestic to Procedure: Yes Nausea / Vomiting: adequately controlled Pain: adequately controlled Airway Patency, RR, SpO2: stable & adequate BP & HR: stable & adequate Hydration State: stable & adequate Anesthetic Complications: no major complications apparent
[2017-02-09 16:11] LABS: BUN/CREATININE RATIO 11.5 (10-20); CALCIUM 8.8 mg/dl (8.5-10.1); CREATININE 1.09 mg/dl (0.60-1.40); POTASSIUM 3.7 mmol/L (3.5-5.1); URIC ACID 5.2 mg/dl (2.6-7.2)
[2017-02-09 16:15] VITALS: BP 114/73; PULSE 67; O2SAT 96
[2017-02-09 16:19] LABS: ALB/GLOB RATIO 1.1 (0.9-2); CHOLESTEROL/HDL RATIO 5.9; PROSTATE SPECIFIC ANTIGEN 0.19 ng/ml (0.000-4.000); THYROID STIMULATING HORMONE 1.65 uIu/ml (0.300-4.500)
== END | disposition home or self-care (01) ==
LOC: C.GI 14:55
PROVIDERS: ATTEND Internal Medicine
DX: R19.4 Change in bowel habit (principal); F17.200 Nicotine dependence, unspecified, uncomplicated; Z79.899 Other long term (current) drug therapy